=== PATIENT | female | born 1970 | race African-American/Black ===

== ENCOUNTER 2019-10-30 21:16 | Emergency (ER) | payer MEDICAID, OTHER ==
[~2019-10-30] VITALS: Ht 147.3 cm; Wt 93.4 kg
[2019-10-30 21:30] VITALS: BP 162/78
--- NOTE | 2019-10-30 22:03 | NUR ---
PT AAOX4. C/O R SIDED LOWER BACK PAIN X3 DAY "SPAZAMING", COUGH AND CONGESTION X2 DAYS. PLACED ON MONITOR AND PULSE OX/. AWAITING MD FOR EVAL. NO ACUTE DISTRESS NOTED. RR EVEN AND UNALBRED.
[2019-10-30] MEDS ORDERED: DIAZEPAM 5 MG TABLET ONE (22:52)
[2019-10-30] MEDS ORDERED: ACETAMINOPHEN W/ CODEINE#3 1 EA TABLET ONE (22:52)
[2019-10-30] MEDS: ACETAMINOPHEN W/ CODEINE#3 1 EA TABLET PO ONE (22:59)
[2019-10-30] MEDS: DIAZEPAM 10 MG TABLET PO ONE (22:59)
[2019-10-30] MEDS: IV NS 0.9% 1,000 ML BAG IV ONE (23:00)
[2019-10-30 23:07] LABS: BASOPHILS # (AUTO) 0.1 /CMM (0.0-0.2); BASOPHILS % (AUTO) 0.8 % (0.0-2.0); EOSINOPHILS % (AUTO) 1.1 % (0.0-6.0); HEMATOCRIT 44 % (33-45); HEMOGLOBIN 14.7 g/dL (11.5-14.8); LYMPHOCYTES # (AUTO) 2.3 /CMM (0.8-4.8); LYMPHOCYTES % (AUTO) 19.8 % (20.0-44.0); MEAN CORPUSCULAR HGB CONC 33 g/dl (31.0-36.0); MEAN CORPUSCULAR VOLUME 90 fL (82-100); MONOCYTES # (AUTO) 0.8 /CMM (0.1-1.30); MONOCYTES % (AUTO) 6.7 % (2.0-12.0); NEUTROPHILS # (AUTO) 8.4 /CMM (1.8-8.9); NEUTROPHILS % (AUTO) 71.6 % (43.0-81.0); PLATELET COUNT (AUTO) 374 /CMM (150-450); WHITE BLOOD COUNT (AUTO) 11.8 K/uL (4.3-11.0)
--- NOTE | 2019-10-30 23:07 | NUR ---
URINE AND LABS COLLECTED
[2019-10-30 23:14] LABS: CALCIUM, SERUM 9.1 mg/dL (8.5-10.1); CREATININE 0.9 mg/dL (0.6-1.3)
--- NOTE | 2019-10-31 00:25 | NUR ---
IV removed. Catheter intact and site benign. Pressure and 4x4 applied to site. No bleeding noted. Patient discharged to home in stable condition. Written and verbal after care instructions given. Patient verbalizes understanding of instruction. Pt refused to sign paper.
== END 2019-10-31 00:59 | disposition home or self-care (01) ==
LOC: ER 21:17
DX: J20.9 Acute bronchitis, unspecified (principal); M54.5 Low back pain; G89.29 Other chronic pain; F17.200 Nicotine dependence, unspecified, uncomplicated
CPT/HCPCS: 71046; 36415; 80048; 84703; 85025; 99284; J7030

== ENCOUNTER 2019-11-03 21:49 | Emergency (ER) | payer MEDICAID ==
[~2019-11-03] VITALS: Ht 147.3 cm; Wt 94.3 kg
--- NOTE | 2019-11-03 22:18 | NUR ---
PT AAOX4. BIBS. AMBUALTORY WITH STEADY GAIT. PT STATES SHE FEELS SOB SINCE SUN. AND NOTED PRODUCTIVE LIGHT GREEN SPUTUM TODAY. ALSO, FEELING CONGESTED. RR even and unalbored, placed on montor and pulse ox. VSS. No acute distress noted. Pt sat 100% on room air. Will continue to monitor.
--- NOTE | 2019-11-03 22:20 | NUR ---
xray at bedside.
--- NOTE | 2019-11-03 23:20 | NUR ---
Patient is resting comfortably in bed. Easily aroused. VSS.
--- NOTE | 2019-11-03 23:30 | NUR ---
Patient discharged to home in stable condition. Written and verbal after care instructions given. Patient verbalizes understanding of instruction and RX. Pt refuses to sign discharge papers and stated she would like to speak to nursing sup.
--- NOTE | 2019-11-03 23:54 | NUR ---
PT SPEAKING TO PROSPECTING DRILLER.
--- NOTE | 2019-11-04 00:07 | NUR ---
pt ambulated with steady gait. VSS. RR even and unlabored. Pt stated she would not sign the discharge papers because she will call [facility] in the morning. Pt ambulated with friend.
[2019-11-04 00:09] VITALS: BP 120/68
== END 2019-11-04 00:10 | disposition home or self-care (01) ==
LOC: ER 21:49
DX: J06.9 Acute upper respiratory infection, unspecified (principal); J32.9 Chronic sinusitis, unspecified
CPT/HCPCS: 71045-TC